=== PATIENT | male | born 1990 | race African-American/Black ===

== ENCOUNTER 2023-08-20 23:15 | Emergency (ER) | payer SELFPAY ==
[~2023-08-20] VITALS: Ht 170.2 cm; Wt 75.0 kg
[2023-08-20 23:57] VITALS: BP 111/72; PULSE 73; RESP 16; O2SAT 97
== END 2023-08-21 02:29 | disposition left against medical advice (07) ==
LOC: ER 23:15
DX: S90.852A Superficial foreign body, left foot, initial encounter (principal); Z53.21 Procedure and treatment not carried out due to patient leaving prior to being seen by health care provider; X58.XXXA Exposure to other specified factors, initial encounter; Y93.89 Activity, other specified; Y92.89 Other specified places as the place of occurrence of the external cause; Y99.8 Other external cause status

== ENCOUNTER 2023-08-21 05:44 | Emergency (ER) | payer SELFPAY ==
[~2023-08-21] VITALS: Ht 170.2 cm; Wt 75.0 kg
[2023-08-21 06:23] VITALS: BP 102/65; PULSE 76; RESP 17; TEMP 97.8; O2SAT 95
== END 2023-08-21 08:42 | disposition home or self-care (01) ==
LOC: ER 05:44
DX: R09.A9 Foreign body sensation, other site (principal)
CPT/HCPCS: 73630

== ENCOUNTER 2023-08-21 18:42 | Emergency (ER) | payer MEDICAID, OTHER ==
[~2023-08-21] VITALS: Ht 177.8 cm; Wt 75.2 kg
[2023-08-21 20:02] LABS: Basophils # (auto) 0.1 10 ^3/uL (0-0.2); Basophils % (auto) 0.9 % (0.0-2.0); Eosinophils # (auto) 0.1 10 ^3/uL (0-0.8); Eosinophils % (auto) 2.1 % (0.0-7.0); Hematocrit 40.9 % (41.0-53.0); Hemoglobin 12.9 g/dL (13.5-17.5); Lymphocytes # (auto) 1.1 10 ^3/uL (0.4-5.4); Lymphocytes % (auto) 17.9 % (10.0-50.0); Mean Corpuscular Hemoglobin 24.9 pg (28.0-32.0); Mean Corpuscular Hgb Conc. 31.5 g/dL (32.0-36.0); Mean Corpuscular Volume 78.9 fL (80.0-100.0); Monocytes # (auto) 0.5 10 ^3/uL (0-1.3); Monocytes % (auto) 7.9 % (0.0-12.0); Neutrophils # (auto) 4.4 10 ^3/uL (1.6-8.6); Neutrophils % (auto) 71.2 % (37.0-80.0); Nucleated Red Blood Cells % 0.1 %; Red Blood Cells 5.18 10^6/uL (4.5-5.90); Red Cell Distribution Width 15.1 % (11.8-14.3); White Blood Cell 6.1 10^3/uL (4.4-10.8)
[2023-08-21 20:12] LABS: Chloride 102 mmol/L (98-107); Potassium 3.3 mmol/L (3.5-5.1); Sodium 136 mmol/L (136-145)
[2023-08-21 20:13] LABS: Anion Gap 5 (5-15); Carbon Dioxide 29 mmol/L (20-30)
[2023-08-21 20:14] LABS: Calcium 9.4 mg/dL (8.5-10.1)
[2023-08-21 20:18] LABS: BUN/Creatinine Ratio 7.3 (10.0-20.0); Blood Urea Nitrogen 7 mg/dL (9-23); Glucose 97 mg/dL (74-106)
[2023-08-21 20:19] LABS: Blood Alcohol < 3.0 mg/dL (<10)
[2023-08-21 20:20] LABS: Acetaminophen < 2.0 UG/ML (10.0-20.0)
[2023-08-21 20:23] LABS: Salicylate < 3.0 mg/dL (2.8-20.0)
[2023-08-21 20:56] LABS: Amphetamine Screen, Urine Pos (NEGATIVE); Benzodiazephine Screen, Urine Neg (NEGATIVE)
[2023-08-21 20:57] LABS: Barbiturate Scree,Urine Neg (NEGATIVE); Cannabinoid Screen, Urine Pos (NEGATIVE); Cocaine Screen, Urine Neg (NEGATIVE); Opiate Scree,Urine Neg (NEGATIVE); Phencyclidine Screen, Urine Neg (NEGATIVE)
[2023-08-22 07:53] VITALS: PULSE 64; RESP 16; O2SAT 100
[2023-08-22] MEDS: POTASSIUM EFFERVESENT TAB 25 MEQ PO ONE (08:46)
[2023-08-22 19:45] VITALS: PULSE 70; RESP 18; O2SAT 100
[2023-08-22] MEDS: OLANZapine 5 MG TAB PO SCH (22:00)
[2023-08-23 09:30] VITALS: PULSE 65; RESP 18; O2SAT 99
[2023-08-23 23:07] VITALS: PULSE 88; O2SAT 100
[2023-08-24 10:37] VITALS: PULSE 80; RESP 20; O2SAT 97
[2023-08-25 07:45] VITALS: PULSE 75; RESP 20; O2SAT 97
[2023-08-25 19:45] VITALS: PULSE 57; RESP 20; O2SAT 97
[2023-08-26 08:30] VITALS: BP 110/65; PULSE 68; RESP 20; TEMP 98; O2SAT 98
== END 2023-08-26 10:03 | disposition home or self-care (01) ==
LOC: ER 18:44
DX: R45.851 Suicidal ideations (principal); F41.9 Anxiety disorder, unspecified; F31.9 Bipolar disorder, unspecified; F17.210 Nicotine dependence, cigarettes, uncomplicated; F15.90 Other stimulant use, unspecified, uncomplicated
CPT/HCPCS: 36415; 80048; 80307; 80320; 80329; 85025